=== PATIENT | male | born 1965 | race Caucasian/White ===

== ENCOUNTER 2023-03-12 18:31 | Inpatient (IN) | payer MEDICAID ==
[~2023-03-12] VITALS: Ht 185.4 cm; Wt 77.6 kg
[2023-03-12 21:10] VITALS: RESP 18; O2SAT 99
[2023-03-12 21:22] VITALS: BP 130/79; PULSE 94; RESP 18; TEMP 97.9; O2SAT 99
[2023-03-12] MEDS ORDERED: LISI10TA27 PO (21:46)
[2023-03-12] MEDS ORDERED: LEVO50TA8 PO (21:46)
--- NOTE | 2023-03-12 22:07 | NUR ---
Nursing Admit Note: The patient is a 58 year old male admitted from [facility] after he attempted suicide by intentionally took an overdose of medications; Levothyroxine, Rosuvastatin and lisinopril. He was also very intoxicated and his BA on arrival to the ER was 250. His drug screen was positive for THC. He stated that he drinks daily and stated, "I'm an alcoholic" He has a hx of Throat CA in 2007, HTN, Hypothyroid. Psychotic symptoms are denied.
[2023-03-13 07:00] VITALS: RESP 14; O2SAT 99
[2023-03-13 08:00] VITALS: BP 122/88; PULSE 76; RESP 14; TEMP 98; O2SAT 99
[2023-03-13] MEDS ORDERED: pneumococcal 23-VAL P-sac vacc 25 mcg/0.5ml vial IMVAC ONE (10:00)
[2023-03-13] MEDS ORDERED: LORazepam 1 MG tablet PO ONE (10:30)
[2023-03-13] MEDS ORDERED: NICOTINE POLACRILEX 2 MG LOZENGE BC PRN (10:40)
[2023-03-13] MEDS: nicotine 14mg patch - 24hr TD SCH (10:54)
--- NOTE | 2023-03-13 11:00 | NUR ---
CIWA score 1. HR 86, RR 16, O2 100%, BP 158/81
--- NOTE | 2023-03-13 15:00 | NUR ---
CIWA score at 1500: 0. HR 94, RR 17, O2 96, BP 123/61.
--- NOTE | 2023-03-13 17:51 | NUR ---
Nursing Progress Note: Marvel Problem: The patient is a 58 year old male admitted from [facility] after he attempted suicide by intentionally took an overdose of medications; Levothyroxine, Rosuvastatin and lisinopril. He was also very intoxicated and his BA on arrival to the ER was 250. His drug screen was positive for THC. He stated that he drinks daily and stated, "I'm an alcoholic" He has a hx of Throat CA in 2007, HTN, Hypothyroid. Psychotic symptoms are denied. Interventions: Provided 1:1 assessment, therapeutic conversation, active listening, medication administration/education/monitoring, behavior monitoring and intervention as needed; attempted reality orientation, provided distraction, redirection, positive reinforcement, and Q15 min safety checks. Response: Received pt asleep. Pt ate all meals in the community room. Pt observed talking on phone and crying while pacing the hallway. Given Ativan one time dose with good effect. 1:1 assessment done bedside. Pt denies SI/HI and AVH. Pt placed on CIWA per MD; score at 1100 was 1, score at 1500 was 0. Pt kind and appropriate with staff. Appearance is disheveled. Pt states that the phone call was with his and it upset him. Pt stated my wants to split up and thats why Im in here. 35 years up in smoke. Provided redirection and therapeutic communication. Pt observed watching tv with peers in community room. Pt labile. Pt crying loudly in room at end of shift. PRN Ativan given. Will continue to monitor. Plan: Pt. requires interruption of current crisis, medication adjustments, and a safe and supportive environment.
[2023-03-13] MEDS ORDERED: LORazepam 1 MG tablet PO PRN (17:55)
[2023-03-13 19:00] VITALS: RESP 18; O2SAT 99
[2023-03-13 20:00] VITALS: BP 115/69; PULSE 87; RESP 16; TEMP 97.8; O2SAT 99
[2023-03-13 21:25] VITALS: BP 161/77
[2023-03-13] MEDS ORDERED: traZODone 50mg tablet PO ONE (21:48)
[2023-03-13] MEDS ORDERED: lisinopril 10 MG tablet PO ONE (21:50)
--- NOTE | 2023-03-14 00:39 | NUR ---
Nursing Progress Note: Marvel Problem: The patient is a 58 year old male admitted from [facility] after he attempted suicide by intentionally took an overdose of medications; Levothyroxine, Rosuvastatin and lisinopril. He was also very intoxicated and his BA on arrival to the ER was 250. His drug screen was positive for THC. He stated that he drinks daily and stated, "I'm an alcoholic" He has a hx of Throat CA in 2007, HTN, Hypothyroid. Psychotic symptoms are denied. Interventions: Provided 1:1 assessment, therapeutic conversation, active listening, medication administration/education/monitoring, behavior monitoring and intervention as needed; attempted reality orientation, provided distraction, redirection, positive reinforcement, and Q15 min safety checks. Response: Pt sobbing loudly in room immediately prior to shift change. Given PRN Ativan 1mg by dayshift, effective, pt able to stop crying. Pt is upset about of 35 years leaving him. He latter spoke to her on the phone and was able to stay calm. Per pt he drinks 6 shots of alcohol daily. "It is not that much because I spread it out over the day" He claims he has been doing 6 shots a day since 2007. He denies ever having alcohol withdrawals even when he runs out of money and stops for a few days. His CIWA score is 0. His blood pressure was elevated at 161/77 he has been off his Lisinopril so that was restarted. He denies A/V/H SI or HI. He denies any prior Psych History. 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 He hopes to return there and to his job at discharge. Plan: Pt. requires interruption of current crisis, medication adjustments, and a safe and supportive environment.
[2023-03-14 07:30] VITALS: BP 115/79; PULSE 86; RESP 12; TEMP 98.8; O2SAT 97
[2023-03-14] MEDS ORDERED: folic acid 1mg tablet PO ONE (08:10)
[2023-03-14] MEDS ORDERED: thiamine 100mg tablet PO ONE (08:10)
[2023-03-14] MEDS ORDERED: multivitamins, therapeutics tablet PO ONE (08:10)
[2023-03-14] MEDS: ESCITALOPRAM OXALATE 5 MG TABLET PO SCH (08:18)
[2023-03-14] MEDS: levoTHYROXINE 25mcg tablet PO SCH (08:18)
[2023-03-14] MEDS: lisinopril 10 MG tablet PO SCH (08:19)
[2023-03-14] MEDS: nicotine 14mg patch - 24hr TD SCH (08:21)
--- NOTE | 2023-03-14 16:55 | NUR ---
Nursing Progress Note: Problem: The patient is a 58 year old male admitted from [facility] after he attempted suicide by intentionally took an overdose of medications; Levothyroxine, Rosuvastatin and lisinopril. He was also very intoxicated and his BA on arrival to the ER was 250. His drug screen was positive for THC. He stated that he drinks daily and stated, "I'm an alcoholic" He has a hx of Throat CA in 2007, HTN, Hypothyroid. Psychotic symptoms are denied. Interventions: Provided 1:1 assessment, therapeutic conversation, active listening, medication administration/education/monitoring, behavior monitoring and intervention as needed; attempted reality orientation, provided distraction, redirection, positive reinforcement, and Q15 min safety checks. Response: Received pt. asleep in bed at start of shift. Pt. awoke for breakfast and took all medications. Pt. went back to his room and napped. Pt.s CIWA D/Cd. 1:1 done at bedside, pt. states, Im fine. Pt. denies SI, HI, A/V hallucinations. Pt. reports that he had been suicidal for a brief moment but no longer has any desire to end his life. Pt. 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 Plan: Pt. requires interruption of current crisis, medication adjustments, and a safe and supportive environment.
[2023-03-14 19:27] VITALS: BP 118/68; PULSE 87; RESP 16; TEMP 98; O2SAT 100
[2023-03-14 19:29] VITALS: RESP 16; O2SAT 100
[2023-03-14] MEDS: traZODone 50mg tablet PO PRN (19:58)
--- NOTE | 2023-03-15 02:20 | NUR ---
Nursing Progress Note: Problem: The patient is a 58 year old male admitted from [facility] after he attempted suicide by intentionally took an overdose of medications; Levothyroxine, Rosuvastatin and lisinopril. He was also very intoxicated and his BA on arrival to the ER was 250. His drug screen was positive for THC. He stated that he drinks daily and stated, "I'm an alcoholic" He has a hx of Throat CA in 2007, HTN, Hypothyroid. Psychotic symptoms are denied. Interventions: One to one with the patient to assess severity of depressive symptoms and self harm risk. He is on q 15 minute safety checks. He was given PRN Trazodone at . Response: The patient was very friendly and talkative during the assessment. He denies that he is suicidal and regrets taking the overdose and that now he has to face his family/friends. He denies that he is craving ETOH or having withdrawals. He did state that he is considering going to AA after discharge and stated that if he doesn't stop drinking he has no chance in getting back with his . He stated that even though he was in the hospital his mood was fairly good and he did not have any suicidal thoughts. He stated that he has family to live for and he knows he is not alone. He appeared well groomed. He denies side effects to medications. Plan: Continue hospitalization and plan of care.
[2023-03-15] MEDS: ESCITALOPRAM OXALATE 5 MG TABLET PO SCH (07:29)
[2023-03-15] MEDS: levoTHYROXINE 25mcg tablet PO SCH (07:29)
[2023-03-15 07:30] VITALS: BP 129/75; PULSE 96; RESP 16; TEMP 97.9; O2SAT 100
[2023-03-15] MEDS: folic acid 1mg tablet PO SCH (07:30)
[2023-03-15] MEDS: thiamine 100mg tablet PO SCH (07:30)
[2023-03-15] MEDS: lisinopril 10 MG tablet PO SCH (07:30)
[2023-03-15] MEDS: multivitamins, therapeutics tablet PO SCH (08:13)
[2023-03-15] MEDS: nicotine 14mg patch - 24hr TD SCH (08:14)
[2023-03-15 11:38] LABS: HBSAG SCREEN Negative (Negative); HEP B CORE AB, IGM Negative (Negative); HEP B CORE AB, TOT Negative (Negative)
--- NOTE | 2023-03-15 12:47 | NUR ---
5250 upheld for DTS
[2023-03-15] MEDS: acetaminophen 325mg tablet PO PRN ×2 (13:49→20:29)
[2023-03-15 15:22] LABS: THYROID STIMULATING HORMONE 0.03 ulU/ml (0.34-4.50)
--- NOTE | 2023-03-15 17:54 | NUR ---
Nursing Progress Note: Problem: The patient is a 58 year old male admitted from [facility] after he attempted suicide by intentionally took an overdose of medications; Levothyroxine, Rosuvastatin and lisinopril. He was also very intoxicated and his BA on arrival to the ER was 250. His drug screen was positive for THC. He stated that he drinks daily and stated, "I'm an alcoholic" He has a hx of Throat CA in 2007, HTN, Hypothyroid. Psychotic symptoms are denied. Interventions: Provided 1:1 assessment, therapeutic conversation, active listening, medication administration/education/monitoring, behavior monitoring and intervention as needed; attempted reality orientation, provided distraction, redirection, positive reinforcement, and Q15 min safety checks. Response: RN received pt. asleep in bed at start of shift. Pt. awoke for breakfast and took all medications. Pt. went back to his room napped. 1:1 done at bedside, pt. denies SI/HI, A/V hallucinations. Pt. reports feeling hopeful. Pt. observed socializing with peers. Pt. c/o bilateral lower rib pain and x-ray ordered which was negative for fractures and pneumothorax. Pt. received Tylenol 650mg po with good effect. Plan: Pt. requires interruption of current crisis, medication adjustments, and a safe and supportive environment.
[2023-03-15 17:59] LABS: BILIRUBIN,URINE NEGATIVE (Neg); CLARITY,URINE CLEAR (Clear); COLOR,URINE STRAW (Yellow); GLUCOSE, URINE NEGATIVE (Neg); KETONES,URINE NEGATIVE (Neg); LEUKOCYTE ESTERASE ,URINE NEGATIVE (Neg); NITRITES, URINE NEGATIVE (Neg); OCCULT BLOOD,URINE NEGATIVE (Neg); PH,URINE 6.5 (4.8-8.0); PROTEIN,URINE NEGATIVE (Neg); UROBILINOGEN,URINE 0.2 E.U/dL (0.2-1.0)
[2023-03-15 18:02] LABS: ALANINE AMINOTRANSFERASE 32 U/L (12-78); ALBUMIN 3.8 G/DL (3.4-5.0); ALBUMIN/GLOBULIN RATIO 1.1 (1.1-1.5); ALKALINE PHOSPHATASE 112 IU/L (46-116); ANION GAP 9 (8-16); ASPARTATE AMINO TRANSFERASE 27 U/L (10-37); BILIRUBIN,TOTAL 0.7 MG/DL (0.1-1.0); BLOOD UREA NITROGEN 28 MG/DL (7-18); BUN/CREATININE RATIO 22.4 (10.0-20.0); CALCIUM 9.6 MG/DL (8.5-10.1); CHLORIDE 102 MMOL/L (99-107); CREATININE 1.25 MG/DL (0.60-1.10); GLUCOSE 90 MG/DL (70-104); POTASSIUM 5.5 MMOL/L (3.5-5.1); SODIUM 139 MMOL/L (135-145); TOTAL CARBON DIOXIDE 27.6 MMOL/L (24-32); TOTAL PROTEIN 7.2 G/DL (6.4-8.2); eCRCL 71 ML/MIN; eGFR 59 ML/MIN
[2023-03-15 18:04] LABS: UA COLLECTION TYPE NON-SPECIFIED
--- NOTE | 2023-03-15 18:29 | NUR ---
RN spoke with Dr. Hamlin regarding pt.'s abnormal K+, BUN, creatinine, and TSH. RN informed that she would put in orders.
[2023-03-15] MEDS ORDERED: normal saline 1000ml 1,000 ML IV ONE (18:45)
[2023-03-15] MEDS ORDERED: sodium polystyrene sulfonate 15gm/60ml oral suspension PO ONE (18:45)
[2023-03-15 19:15] VITALS: RESP 17; O2SAT 97
[2023-03-15 20:00] VITALS: BP 158/87; PULSE 86; RESP 16; TEMP 97.5; O2SAT 99
[2023-03-15] MEDS: traZODone 50mg tablet PO PRN (20:29)
--- NOTE | 2023-03-16 04:02 | NUR ---
Nursing Progress Note: Problem: The patient is a 58 year old male admitted from [facility] after he attempted suicide by intentionally took an overdose of medications; Levothyroxine, Rosuvastatin and lisinopril. He was also very intoxicated and his BA on arrival to the ER was 250. His drug screen was positive for THC. He stated that he drinks daily and stated, "I'm an alcoholic" He has a hx of Throat CA in 2007, HTN, Hypothyroid. Psychotic symptoms are denied. Interventions: Provided 1:1 assessment, therapeutic conversation, active listening, medication administration/education/monitoring, behavior monitoring and intervention as needed; attempted reality orientation, provided distraction, redirection, positive reinforcement, and Q15 min safety checks. Response: Upon arrival to shift noted patient dancing in room with headphones on. Appeared to be enjoying himself. Later during 1:1 assessment, patient reports feeling hopeful. Noted to be fairly groomed with clean street clothes. Pleasant, calm and cooperative. Bright mood and talkative and laughing during conversation periodically. Reports that he was feeling better, I talked to my today. That made me feel better. I dont think itll change things between us but it made me feel better. Denies SI, HI, AH and VH. No delusions or self-harm behaviors noted. IV started to right AC. Patent and flushes well. 1 L Bolus order of fluids r/t elevated creatinine and bun. Noted Kayexalate 60 gm po x 1 r/t elevated +K 5.5 as well. Compliant with HS meds. PRN Tylenol and Trazodone given with good effect. Removed nicotine patch. Slept well this shift. Will continue to monitor. Plan: Pt. requires interruption of current crisis, medication adjustments, and a safe and supportive environment.
[2023-03-16 07:00] VITALS: RESP 12; O2SAT 97
[2023-03-16 08:00] VITALS: BP 142/80; PULSE 74; RESP 12; TEMP 97.5; O2SAT 97
[2023-03-16] MEDS: nicotine 14mg patch - 24hr TD SCH (08:00)
[2023-03-16 08:16] LABS: BASOPHILS % (AUTO) 0.7 % (0-1); EOSINOPHILS # (AUTO) 0.2 X10'3 (0-0.9); EOSINOPHILS % (AUTO) 3.2 % (0-6); HEMATOCRIT 38.6 % (42.0-52.0); HEMOGLOBIN 13.1 g/dl (14.0-17.9); LYMPHOCYTES # (AUTO) 0.8 X10'3 (1.1-4.8); LYMPHOCYTES % (AUTO) 12.6 % (21-51); MEAN CORPUSCULAR HEMOGLOBIN 31.3 PG (27.0-31.0); MEAN CORPUSCULAR HGB CONC 33.9 g/dL (33.0-36.5); MEAN CORPUSCULAR VOLUME 92.3 FL (78-98); MEAN PLATELET VOLUME 8.3 FL (7.4-10.4); MONOCYTES # (AUTO) 0.6 X10'3 (0-0.9); MONOCYTES % (AUTO) 9.9 % (2-12); NEUTROPHILS # (AUTO) 4.4 X10'3 (1.8-7.7); NEUTROPHILS % (AUTO) 73.6 % (42-75); PLATELET COUNT 175 X10'3 (140-440); RED BLOOD COUNT 4.19 X10'6 (4.70-6.10); RED CELL DISTRIBUTION WIDTH 13.9 % (11.5-14.5)
[2023-03-16] MEDS: ESCITALOPRAM OXALATE 5 MG TABLET PO SCH (08:43)
[2023-03-16] MEDS: multivitamins, therapeutics tablet PO SCH (08:43)
[2023-03-16] MEDS: levoTHYROXINE 25mcg tablet PO SCH (08:43)
[2023-03-16] MEDS: folic acid 1mg tablet PO SCH (08:43)
[2023-03-16] MEDS: thiamine 100mg tablet PO SCH (08:43)
[2023-03-16] MEDS: lisinopril 10 MG tablet PO SCH (08:44)
[2023-03-16] MEDS: acetaminophen 325mg tablet PO PRN (08:58)
[2023-03-16 09:12] LABS: ALANINE AMINOTRANSFERASE 28 U/L (12-78); ALBUMIN 3.3 G/DL (3.4-5.0); ALBUMIN/GLOBULIN RATIO 1.1 (1.1-1.5); ALKALINE PHOSPHATASE 96 IU/L (46-116); ANION GAP 6 (8-16); ASPARTATE AMINO TRANSFERASE 19 U/L (10-37); BILIRUBIN,TOTAL 0.8 MG/DL (0.1-1.0); BLOOD UREA NITROGEN 27 MG/DL (7-18); BUN/CREATININE RATIO 26.5 (10.0-20.0); CALCIUM 8.8 MG/DL (8.5-10.1); CHLORIDE 104 MMOL/L (99-107); CREATININE 1.02 MG/DL (0.60-1.10); GLUCOSE 105 MG/DL (70-104); POTASSIUM 4.1 MMOL/L (3.5-5.1); SODIUM 138 MMOL/L (135-145); TOTAL CARBON DIOXIDE 28.3 MMOL/L (24-32); TOTAL PROTEIN 6.3 G/DL (6.4-8.2); eCRCL 87 ML/MIN; eGFR 75 ML/MIN
--- NOTE | 2023-03-16 09:29 | NUR ---
Initial: Pt admit for major depressive disorder. Per EMR pt with chronic EtOH use, currently receiving routine Thiamine, Folic acid, and MVI. Pt on a regular diet and eating well, documented with 100% PO intake of all meals except for 75% PO intake of lunch 03/14, meeting estimated nutrient needs. LBM 03/15 per EMR. No nutrition intervention warranted at this time. Will continue to follow and make recommendations as appropriate. Recommendations: 1) Continue regular diet 2) Continue routine Thiamine, Folic acid, and MVI for EtOH use 3) Bowel care PRN 4) Weekly scaled weights Addendum: 03/16/23 at [address] Amended: Links added.
[2023-03-16 09:35] LABS: FREE T4 (FREE THYROXINE) < 0.20 NG/DL (0.73-1.40)
--- NOTE | 2023-03-16 17:50 | NUR ---
Nursing Progress Note: Marvel Problem: The patient is a 58 year old male admitted from [facility] after he attempted suicide by intentionally took an overdose of medications; Levothyroxine, Rosuvastatin and lisinopril. He was also very intoxicated and his BA on arrival to the ER was 250. His drug screen was positive for THC. He stated that he drinks daily and stated, "I'm an alcoholic" He has a hx of Throat CA in 2007, HTN, Hypothyroid. Psychotic symptoms are denied. Interventions: Provided 1:1 assessment, therapeutic conversation, active listening, medication administration/education/monitoring, behavior monitoring and intervention as needed; attempted reality orientation, provided distraction, redirection, positive reinforcement, and Q15 min safety checks. Response: Received Pt in bed sleeping w/o distress at the beginning of this shift. Pt was cooperative with vitals and returned to sleep. He woke for breakfast and ate well with others in the community room. Pt took Am meds w/o issue. Pt engaged with assessments well and stated I want to get on depression medications and Ill be here a couple more days. Pt presents in a good mood and thoughts are linear. Pt napped on and off and spent time with others watching TV. Pt denies SI/HI or AV/Hs at this time. Pts lab work returned with potassium wnl and IV was dcd in afternoon. Pt given Tylenol PRN for pain in right rib area with good effect. Plan: Pt. requires interruption of current crisis, medication adjustments, and a safe and supportive environment.
[2023-03-16 19:00] VITALS: RESP 16; O2SAT 97
[2023-03-16 20:00] VITALS: BP 133/73; PULSE 82; RESP 16; TEMP 98.1; O2SAT 97
[2023-03-16] MEDS: traZODone 50mg tablet PO PRN (20:00)
--- NOTE | 2023-03-16 23:47 | NUR ---
Nursing Progress Note: Marvel Problem: The patient is a 58 year old male admitted from [facility] after he attempted suicide by intentionally took an overdose of medications; Levothyroxine, Rosuvastatin and lisinopril. He was also very intoxicated and his BA on arrival to the ER was 250. His drug screen was positive for THC. He stated that he drinks daily and stated, "I'm an alcoholic" He has a hx of Throat CA in 2007, HTN, Hypothyroid. Psychotic symptoms are denied. Interventions: Provided 1:1 assessment, therapeutic conversation, active listening, medication administration/education/monitoring, behavior monitoring and intervention as needed; attempted reality orientation, provided distraction, redirection, positive reinforcement, and Q15 min safety checks. Response: Received Pt in hallway talking with staff. Pt reports feeling great after his shower. Pt reports wanting to not be depressed and currently denies SI/HI or AV/Hs. Pt watched a movie with others in community room then joked with staff and was bright and friendly. He took prn Trazadone, which was increased today, and went to sleep. Plan: Pt. requires interruption of current crisis, medication adjustments, and a safe and supportive environment.
[2023-03-17 08:00] VITALS: BP 161/74; PULSE 77; RESP 14; TEMP 98; O2SAT 97
[2023-03-17] MEDS: thiamine 100mg tablet PO SCH (08:25)
[2023-03-17] MEDS: naltrexone 50mg tablet PO SCH (08:26)
[2023-03-17] MEDS: folic acid 1mg tablet PO SCH (08:26)
[2023-03-17] MEDS: levoTHYROXINE 25mcg tablet PO SCH (08:26)
[2023-03-17] MEDS: multivitamins, therapeutics tablet PO SCH (08:26)
[2023-03-17] MEDS: lisinopril 10 MG tablet PO SCH (08:27)
[2023-03-17] MEDS: ESCITALOPRAM OXALATE 5 MG TABLET PO SCH (08:28)
--- NOTE | 2023-03-17 16:18 | NUR ---
Nursing Progress Note: Marvel Problem: The patient is a 58 year old male admitted from [facility] after he attempted suicide by intentionally took an overdose of medications; Levothyroxine, Rosuvastatin and lisinopril. He was also very intoxicated and his BA on arrival to the ER was 250. His drug screen was positive for THC. He stated that he drinks daily and stated, "I'm an alcoholic" He has a hx of Throat CA in 2007, HTN, Hypothyroid. Psychotic symptoms are denied. Interventions: Provided 1:1 assessment, therapeutic conversation, active listening, medication administration/education/monitoring, behavior monitoring and intervention as needed; attempted reality orientation, provided distraction, redirection, positive reinforcement, and Q15 min safety checks. Response: Patient was found sleeping at change of shift. Patient woke up when nurse brought in morning medications. Patient was cooperative with morning medications and was happy to know breakfast was ready. Patient got up to go to breakfast and went back to bed after eating. Patient returned later singing as he walked down the hallway. Patient sat in community room socializing with other patients until lunch. Patient then retuned to room and went back to bed. Patient was cooperative with medications and staff. Plan: Pt. requires interruption of current crisis, medication adjustments, and a safe and supportive environment.
[2023-03-17] MEDS: acetaminophen 325mg tablet PO PRN (17:40)
[2023-03-17 19:00] VITALS: BP 122/53; PULSE 69; RESP 18; TEMP 97.9; O2SAT 97
[2023-03-17] MEDS: traZODone 50mg tablet PO PRN (20:12)
--- NOTE | 2023-03-18 04:36 | NUR ---
RN PROGRESS NOTE: LEGAL HOLD: 5250 for DTS PROBLEM: Client was admitted from [facility] after an attempted overdose of Levothyroxine, Rosuvastatin and Lisinopril. His BAL was 250 on arrival to the ED. UDS was positive for THC. Reports daily ETOH use and stated, "I'm an alcoholic". Hx: Throat CA in 2007, HTN, Hypothyroidism. INTERVENTIONS: Provided 1:1 assessment, therapeutic conversation, active listening, medication administration/education/monitoring, behavior monitoring and intervention as needed; attempted reality orientation, provided distraction, redirection, positive reinforcement, and Q15 min safety checks. RESPONSE: Client watched TV and socialized with other patients. He stated "I'm going home to my tomorrow - if she's still there." Client is concerned about the state of his marriage and is not sure his will 'take him back'. His mood is stable at this time and he denies SI. He requested Trazodone as he was having difficulty falling asleep. PLAN: Pt. requires interruption of current crisis, medication adjustments, and a safe and supportive environment.
[2023-03-18 07:00] VITALS: RESP 18; O2SAT 96
[2023-03-18 08:00] VITALS: BP 110/61; PULSE 80; RESP 18; TEMP 98; O2SAT 96
[2023-03-18 08:14] VITALS: BP_SYST 110; PULSE 80
[2023-03-18] MEDS: naltrexone 50mg tablet PO SCH (08:14)
[2023-03-18] MEDS: ESCITALOPRAM OXALATE 5 MG TABLET PO SCH (08:14)
[2023-03-18] MEDS: lisinopril 10 MG tablet PO SCH (08:14)
[2023-03-18] MEDS: folic acid 1mg tablet PO SCH (08:15)
[2023-03-18] MEDS: thiamine 100mg tablet PO SCH (08:15)
[2023-03-18] MEDS: multivitamins, therapeutics tablet PO SCH (08:15)
[2023-03-18] MEDS: acetaminophen 325mg tablet PO PRN (11:02)
[2023-03-18] MEDS ORDERED: LISI10TA27 PO (11:18)
[2023-03-18] MEDS ORDERED: NALT50TA PO (11:18)
[2023-03-18] MEDS ORDERED: thiamine tablet PO (11:18)
[2023-03-18] MEDS ORDERED: ESCI10TA PO (11:18)
[2023-03-18] MEDS ORDERED: FOLI1TAB27 PO (11:18)
[2023-03-18] MEDS ORDERED: MULT-25 PO (11:18)
[2023-03-18] MEDS ORDERED: TRAZ-256 PO (11:18)
--- NOTE | 2023-03-18 11:47 | NUR ---
Discharge Note: Pt discharged home, picked up by parents. Pt. discharged with all belongings and valuables. RN went over discharge paperwork with pt including firearms restriction, emergency phone numbers including 911, and discharge medications along with f/u plan. Pt signed all paperwork. Pt denies SI/HI and AVH. Pt is A&OX4 and in no apparent distress.
== END 2023-03-18 11:47 | disposition home or self-care (01) | DRG 751 ==
LOC: ADULT MH 21:06
PROVIDERS: ADMIT Psychiatry & Neurology Psychiatry; ATTEND Psychiatry & Neurology Psychiatry
DX: F33.2 Major depressive disorder, recurrent severe without psychotic features (principal); R45.851 Suicidal ideations; N19 Unspecified kidney failure; E03.9 Hypothyroidism, unspecified; E87.5 Hyperkalemia; F10.20 Alcohol dependence, uncomplicated; F17.210 Nicotine dependence, cigarettes, uncomplicated; I10 Essential (primary) hypertension; J44.9 Chronic obstructive pulmonary disease, unspecified; R07.9 Chest pain, unspecified; Y90.8 Blood alcohol level of 240 mg/100 ml or more; N40.0 Benign prostatic hyperplasia without lower urinary tract symptoms; T46.6X2A Poisoning by antihyperlipidemic and antiarteriosclerotic drugs, intentional self-harm, initial encounter; T38.1X2A Poisoning by thyroid hormones and substitutes, intentional self-harm, initial encounter; T46.4X2A Poisoning by angiotensin-converting-enzyme inhibitors, intentional self-harm, initial encounter; Y92.89 Other specified places as the place of occurrence of the external cause; Z79.899 Other long term (current) drug therapy; Z92.3 Personal history of irradiation; Z92.21 Personal history of antineoplastic chemotherapy; Z85.89 Personal history of malignant neoplasm of other organs and systems; Z88.5 Allergy status to narcotic agent; Z86.010 Personal history of colon polyps; Z71.6 Tobacco abuse counseling
CPT/HCPCS: 36415; 71100; 80053; 81003; 84439; 84443; 84480; 85025; 86704; 86705; 87081; 87340; 90732; J7030